=== PATIENT | female | born 1965 | race Caucasian/White ===

== ENCOUNTER 2016-07-10 18:54 | Emergency (ER) | payer OTHER ==
--- NOTE | 2016-07-10 19:52 | PROVIDER DOCUMENTATION ---
HPI-General Adult <Lisa Max - Last Filed: 07/10/16 20:51> - General Source: patient - History of Present Illness -Gen Adult Nature of Presenting Problems: 51 y/o F smoker with history of DVT (L leg 7 years ago), HTN, depression, chronic low back pain (2/2 DDD) presents with bilateral lower extremity swelling x 1 week. She also complains of SOB with exertion (x4 months), easy bruising to arms x 1 week. She denies chest pain, being on blood thinners, history of heart failure. She does not have a PCP. Location of Pain/Injury: reports: lower extremity (bilateral) Pain Radiation: reports: no radiation Quality of Pain: reports: aching Severity: reports: moderate Onset/Duration: reports: 1 week ago Timing: reports: still present Context/Activities at Onset: reports: none Associated Symptoms: reports: cough (2 weeks (recent URI)), shortness of breath (occasional with exertion). denies: back/neck pain, chest pain, fever/chills, nausea, sensory/motor loss, vomiting, weakness Similar Symptoms Previously?: Yes (with prior DVT) <Marisabel Damico - Last Filed: 07/10/16 21:58> - General Chief Complaint: General Adult Stated Complaint: GENERAL, ANKLES SWOLLEN Time Seen by Provider: 07/10/16 19:44 Allergies/Adverse Reactions: Patient Allergies Allergy/AdvReac Type Severity Reaction Status Date / Time tramadol HCl * [From Ultram] AdvReac Severe BLURRED Verified 07/10/16 20:35 VISION Home Medications: Home Medication List Medication Instructions Recorded Confirmed Last Taken Type Benzonatate [Tessalon Perle] 100 mg PO TID #30 capsule 07/10/16 Unknown Rx Cephalexin [Keflex] 500 mg PO 4XDAY #20 capsule 07/10/16 Unknown Rx Furosemide [Lasix] 20 mg PO DAILY #5 tablet 07/10/16 Unknown Rx Sulfamethoxazole/Trimethoprim 1 each PO BID #20 tablet 07/10/16 Unknown Rx [Bactrim Ds Tablet] Review of Systems - Adult - REVIEW OF SYSTEMS - ADULT Constitutional: reports: no symptoms reported. denies: chills, fever Eyes: reports: no symptoms reported Ears, Nose, Mouth & Throat: reports: no symptoms reported Cardiovascular: reports: no symptoms reported. denies: chest pain Respiratory: reports: cough, shortness of breath. denies: wheezing Gastrointestinal: reports: no symptoms reported. denies: abdominal pain, nausea , vomiting Genitourinary: reports: no symptoms reported. denies: dysuria, hematuria Musculoskeletal: reports: no symptoms reported. denies: bone pain, back pain Integumentary: reports: no symptoms reported. denies: itching, rash Neurological: reports: no symptoms reported. denies: dizziness/vertigo, headache/migraines, numbness Psychiatric: reports: no symptoms reported Endocrine: reports: no symptoms reported Hematologic/Lymphatic: reports: no symptoms reported Allergic/Immunologic: reports: no symptoms reported All Other Systems: Reviewed and Negative <Marisabel Damico - Last Filed: 07/10/16 21:58> Past History - Adult - PAST MEDICAL HISTORY-ADULT Review of Records: reports: Nursing Assessment Review, Medications Reviewed Cardiovascular: reports: HTN Respiratory: reports: COPD Gastrointestinal: reports: GERD, other (esophageal stretching) Musculoskeletal: reports: arthritis, chronic pain (neck and back pain) Neurological: - PRIOR SURGERIES/PROCEDURES Surgical/Procedure History: reports: hysterectomy (partial), esophageal dilation , other (mouth surgery, right and left foot surgery) - IMMUNIZATION STATUS Childhood Immunizations: See Nurse Assessment Flu Vaccine: See Nurse Assessment <Marisabel Damico - Last Filed: 07/10/16 21:58> Physical Exam-General - PHYSICAL EXAM-ADULT Initial Vital Signs Reviewed: Yes - CONSTITUTIONAL General Appearance: appears well, alert, no apparent distress - EYES Eyes: PERRL/EOMI, pink conjunctivae - HEAD, EARS, NOSE, MOUTH & THROAT HENMT: normocephalic/atraumatic, moist mucous membranes, normal ENT inspection - NECK Neck: non-tender, full range of motion, supple - RESPIRATORY Respiratory: chest non-tender, lungs clear, normal breath sounds, no pleuratic chest pain, no respiratory distress, no accessory muscle use - CARDIOVASCULAR Cardiovascular: normal peripheral pulses, regular rate, rhythm, no gallop, no JVD, no murmur - GASTROINTESTINAL (ABDOMEN) Abdominal Exam: normal bowel sounds, non tender, soft - LYMPHATIC Lymphatic: no adenopathy - MUSCULOSKELETAL Back Exam: normal inspection, no vertebral tenderness Extremity: normal range of motion, normal capillary refill, erythema (bilat), pedal edema (bilateral (L>R) extending to knees. nonpitting.), tenderness (bilat ) Peripheral Pulses: dorsalis-pedis (R): 0 (unable to palpate due to swelling, however right foot is warm with cap refill <2sec), dorsalis-pedis (L): 0, 4+ ( unable to palpate due to swelling, however right foot is warm with cap refill < 2sec) - SKIN Integumentary: normal turgor, warm/dry, other (brusing on bilateral upper extremities) - NEUROLOGIC Neurologic: grossly normal, no motor/sensory deficits - PSYCHIATRIC Psych/Mental Status: normal mood/affect, normal thought content, normal thought process, oriented x 3 <Marisabel Damico - Last Filed: 07/10/16 21:58> Progress - EKG 1 Time of EKG reading by physician:: 20:31 EKG Read and Signed by:: Jg Hernandez EKG Interpretation (*Must complete 3 of following elements*): Normal Rate: 88 Rhythm: NSR Comments: Borderline ECG <Lisa Max - Last Filed: 07/10/16 20:51> - PLAN OF CARE/RESULTS Progress/Plan/Lab Results: Laboratory Tests 07/10/16 07/10/16 07/10/16 20:25 20:25 20:25 WBC 10.09 RBC 4.31 Hgb 13.4 Hct 40.8 MCV 94.7 MCH 31.1 H MCHC 32.8 L RDW Std Deviation 16.4 H Plt Count 377 MPV 9.1 Immature Gran % (Auto) 0.3 Neut % (Auto) 55.7 Lymph % (Auto) 29.6 [place] % (Auto) 9.3 Eos % (Auto) 4.6 Baso % (Auto) 0.5 Immature Gran # (Auto) 0.03 Neut # (Auto) 5.62 Lymph # (Auto) 2.99 [place] # (Auto) 0.94 H Eos # (Auto) 0.46 Baso # (Auto) 0.05 PT INR PTT (Actin FS) D-Dimer 0.46 Sodium 142 Potassium 3.8 Chloride 101 Carbon Dioxide 26 Anion Gap 15 BUN 9 Creatinine 0.9 Estimated GFR/1.73 m2 > 60 BUN/Creatinine Ratio 10 Glucose 111 H Calculated Osmolality 283 Calcium 10.0 Total Bilirubin 0.20 AST 23 ALT 30 Alkaline Phosphatase 122 H Troponin T Uom-M-Nutptvnweaa Pept Total Protein 7.0 Albumin 3.9 Globulin 3.1 Albumin/Globulin Ratio 1.3 07/10/16 07/10/16 07/10/16 20:25 20:25 20:25 WBC RBC Hgb Hct MCV MCH MCHC RDW Std Deviation Plt Count MPV Immature Gran % (Auto) Neut % (Auto) Lymph % (Auto) [place] % (Auto) Eos % (Auto) Baso % (Auto) Immature Gran # (Auto) Neut # (Auto) Lymph # (Auto) [place] # (Auto) Eos # (Auto) Baso # (Auto) PT 10.0 INR 0.94 PTT (Actin FS) 28.3 D-Dimer Sodium Potassium Chloride Carbon Dioxide Anion Gap BUN Creatinine Estimated GFR/1.73 m2 BUN/Creatinine Ratio Glucose Calculated Osmolality Calcium Total Bilirubin AST ALT Alkaline Phosphatase Troponin T < 0.010 Vyf-R-Olbbtkabqby Pept 339 H Total Protein Albumin Globulin Albumin/Globulin Ratio Orders Category Date Time Status CHEST-2 VIEWS [RAD] Stat Exams 07/10/16 19:53 Taken CBC WITH ELECTRONIC DIFF [HEME] Stat Lab 07/10/16 20:25 Completed COMPREHENSIVE METABOLIC PANEL [CHEM] Stat Lab 07/10/16 20:25 Completed D-DIMER [CHEM] Stat Lab 07/10/16 20:25 Completed PRO B-NATRIURETIC PEPTIDE Stat Lab 07/10/16 20:25 Completed PROTIME WITH INR [COAG] Stat Lab 07/10/16 20:25 Completed PTT [COAG] Stat Lab 07/10/16 20:25 Completed TROPONIN T Stat Lab 07/10/16 20:25 Completed EKG [EKG] Stat Ther 07/10/16 19:53 Ordered Vital Signs Temp Pulse Resp BP Pulse Ox 07/10/16 19:06 97.9 F 92 H 18 148/82 98 tramadol HCl * [From [facility]] Adverse Reaction (Severe, Verified 07/10/16 20:35) BLURRED VISION Benzonatate [Tessalon Perle] 100 mg PO TID #30 capsule 07/10/16 Cephalexin [Keflex] 500 mg PO 4XDAY #20 capsule 07/10/16 Furosemide [Lasix] 20 mg PO DAILY #5 tablet 07/10/16 Sulfamethoxazole/Trimethoprim [Bactrim Ds Tablet] 1 each PO BID #20 tablet 07/10 Laboratory 07/10/16 07/10/16 07/10/16 20:25 20:25 20:25 WBC RBC Hgb Hct MCV MCH MCHC RDW Std Deviation Plt Count MPV Immature Gran % (Auto) Neut % (Auto) Lymph % (Auto) [place] % (Auto) Eos % (Auto) Baso % (Auto) Immature Gran # (Auto) Neut # (Auto) Lymph # (Auto) [place] # (Auto) Eos # (Auto) Baso # (Auto) PT 10.0 INR 0.94 PTT (Actin FS) 28.3 D-Dimer Sodium Potassium Chloride Carbon Dioxide Anion Gap BUN Creatinine Estimated GFR/1.73 m2 BUN/Creatinine Ratio Glucose Calculated Osmolality Calcium Total Bilirubin AST ALT Alkaline Phosphatase Troponin T < 0.010 Mjr-L-Cklrrerrgcz Pept 339 H Total Protein Albumin Globulin Albumin/Globulin Ratio 07/10/16 07/10/16 07/10/16 20:25 20:25 20:25 WBC 10.09 RBC 4.31 Hgb 13.4 Hct 40.8 MCV 94.7 MCH 31.1 H MCHC 32.8 L RDW Std Deviation 16.4 H Plt Count 377 MPV 9.1 Immature Gran % (Auto) 0.3 Neut % (Auto) 55.7 Lymph % (Auto) 29.6 [place] % (Auto) 9.3 Eos % (Auto) 4.6 Baso % (Auto) 0.5 Immature Gran # (Auto) 0.03 Neut # (Auto) 5.62 Lymph # (Auto) 2.99 [place] # (Auto) 0.94 H Eos # (Auto) 0.46 Baso # (Auto) 0.05 PT INR PTT (Actin FS) D-Dimer 0.46 Sodium 142 Potassium 3.8 Chloride 101 Carbon Dioxide 26 Anion Gap 15 BUN 9 Creatinine 0.9 Estimated GFR/1.73 m2 > 60 BUN/Creatinine Ratio 10 Glucose 111 H Calculated Osmolality 283 Calcium 10.0 Total Bilirubin 0.20 AST 23 ALT 30 Alkaline Phosphatase 122 H Troponin T Rfl-Z-Ceddepxmzcb Pept Total Protein 7.0 Albumin 3.9 Globulin 3.1 Albumin/Globulin Ratio 1.3 - REASSESSMENT Reassessment #1 Time Reassessed: 21:50 (Patient resting comfortably in no distress. No SOB currently. PO2 98%. Labs show normal WBC, elevated ALP and BNP. Normal troponin , normal EKG. Normal coags. Will discharge patient home to follow up with PCP for further evaluation and treatment. Will give lasix for swelling and cover for possible overlying cellulitis with bactrim and keflex. She is to return to the ER for any new or worsening symptoms.) Status: unchanged - XRAY 1 XRAY Study: Chest Comparison with other Films: no changes XRAY Interpretation: no acute process <Marisabel Damico - Last Filed: 07/10/16 21:58> Departure <Lisa Max - Last Filed: 07/10/16 20:51> - Departure Time of Disposition Order: 21:46 Certified Medical Emergency: Emergent <Marisabel Damico - Last Filed: 07/10/16 21:58> - Departure DIAGNOSIS: Bilateral lower extremity edema Disposition: HOME 01 Condition: Good Additional Instructions: ED Follow Up Instructions: You have been treated by a care provider in the Emergency Department. These instructions are being provided to you so you can have an understanding of how to care for yourself upon discharge. Upon discharge from the Emergency Department, you are responsible for making arrangements for follow-up care by a physician of your choice. Take all prescribed medications as directed. Return to the Emergency Department immediately for any new or worsening symptoms. You may call the Physician Referral phone number at [phone] to obtain a list of Physicians who are taking new patients. Prescriptions: Sulfamethoxazole/Trimethoprim [Bactrim Ds Tablet] 1 each PO BID #20 tablet Cephalexin [Keflex] 500 mg PO 4XDAY #20 capsule Furosemide [Lasix] 20 mg PO DAILY #5 tablet Benzonatate [Tessalon Perle] 100 mg PO TID #30 capsule Referrals: None,PCP [Primary Care Provider] - Attestation - Physician/ TERRELL Attestation Patient care was provided by Advanced Practice Provider:: Yes Advanced Practice Provider:: Marisabel Damico Advanced Practice Provider documentation review:: The Mid-level provider documentation, treatment plan and medical decision making was reviewed by the physician who agrees with all treatment and medical decision making by the [facility]. <Marisabel Damico - Last Filed: 07/10/16 21:58> Physician Attestation
[2016-07-10 20:37] LABS: MANUAL DIFF NEEDED? NO
[2016-07-10 20:45] LABS: BASO% 0.5 % (0.0-0.8); EOS# 0.46 X1000 (0.0-0.7); EOS% 4.6 % (0.0-10.0); HEMATOCRIT 40.8 % (37.0-47.0); HEMOGLOBIN 13.4 g/dL (12.0-16.0); IMM GRAN# 0.03 X1000 (0.0-0.04); IMM GRAN% 0.3 % (0.0-0.5); LYMPH# 2.99 X1000 (1.2-3.4); LYMPH% 29.6 % (20.5-51.1); MCH 31.1 PG (27-31); MCHC 32.8 g/dL (33-37); MCV 94.7 FL (81-99); MONO# 0.94 X1000 (0.11-0.59); MONO% 9.3 % (1.7-9.3); MPV 9.1 FL (7.4-10.4); NEUT% 55.7 % (42.2-75.2); PLT 377 X1000 (130-400); RBC 4.31 XMIL (4.2-5.4)
[2016-07-10 20:54] LABS: INR 0.94; PTT 28.3 Seconds (22.0-36.0)
[2016-07-10 21:04] LABS: AGAP 15; ALBUMIN 3.9 g/dL (3.5-5.0); ALKALINE PHOSPHATASE 122 U/L (32-104); BUN 9 mg/dL (8-22); CHLORIDE 101 mmol/L (98-107); COSMO 283; GOT 23 U/L (10-30); GPT 30 U/L (10-36); POTASSIUM 3.8 mmol/L (3.5-5.1); SODIUM 142 mmol/L (136-145); TCO2 26 mmol/L (25-35)
[2016-07-10 22:01] VITALS: BP 150/91
--- NOTE | 2016-07-11 05:36 | EKG Report ---
Test Performed on : 07/10/2016 8:31:27 PM Test Reason : sob Blood Pressure : / mmHG Vent. Rate : 088 BPM Atrial Rate : 088 BPM P-R Int : 146 ms QRS Dur : 082 ms QT Int : 372 ms P-R-T Axes : 037 000 046 degrees QTc Int : 450 ms Normal sinus rhythm. Possible Left atrial enlargement Borderline ECG When compared with ECG of 10-OCT-2015 16:56, premature ventricular complexes. are no longer present Unconfirmed Result
--- NOTE | 2016-07-11 09:18 | Diag Imaging Result Document ---
PROCEDURE NAME: CHEST-2 VIEWS - 07/10/2016 2 VIEWS OF THE CHEST: FINDINGS: There is no evidence of acute cardiac or pulmonary disease. Compared to 08/15/2015, the inspiration is less optimal but, otherwise, there has been no significant change. IMPRESSION: No evidence of acute disease.
== END 2016-07-10 22:09 | disposition home or self-care (01) ==
LOC: ED 18:54
DX: R60.9 Edema, unspecified (principal); M25.472 Effusion, left ankle; M25.471 Effusion, right ankle; R06.02 Shortness of breath; R05 Cough; I10 Essential (primary) hypertension; J44.9 Chronic obstructive pulmonary disease, unspecified; M19.90 Unspecified osteoarthritis, unspecified site
CPT/HCPCS: 71020; 80053; 83880; 84484; 85025; 85379; 85610; 85730; 93005

== ENCOUNTER 2018-05-23 13:19 | Inpatient (IN) ==
[2018-05-23 14:59] LABS: BASO# 0.04 X1000 (0.0-0.2); BASO% 0.3 % (0.0-0.8); EOS# 0.04 X1000 (0.0-0.7); EOS% 0.3 % (0.0-10.0); HEMATOCRIT 43.5 % (37.0-47.0); HEMOGLOBIN 14.3 g/dL (12.0-16.0); IMM GRAN# 0.02 X1000 (0.0-0.04); IMM GRAN% 0.2 % (0.0-0.5); LYMPH# 1.49 X1000 (1.2-3.4); LYMPH% 12.4 % (20.5-51.1); MCH 29.9 PG (27-31); MCHC 32.9 g/dL (33-37); MCV 90.8 FL (81-99); MONO# 0.44 X1000 (0.11-0.59); MONO% 3.7 % (1.7-9.3); MPV 9.4 FL (7.4-10.4); NEUT# 10.01 X1000 (1.4-6.5); NEUT% 83.1 % (42.2-75.2); PLT 303 X1000 (130-400); RBC 4.79 XMIL (4.2-5.4); RDW 14.8 % (11.5-14.5); WBC 12.04 X1000 (4.8-10.8)
[2018-05-23 15:15] LABS: AGAP 12; ALBUMIN 3.6 g/dL (3.5-5.0); ALKALINE PHOSPHATASE 90 U/L (32-104); BUN 6 mg/dL (8-22); CALCIUM 9.5 mg/dL (8.8-10.2); CHLORIDE 103 mmol/L (98-107); COSMO 278; CREATININE 0.9 mg/dL (0.5-0.9); ESTIMATED GFR > 60; GLUCOSE 108 mg/dL (70-104); GOT 22 U/L (10-30); GPT 20 U/L (10-36); POTASSIUM 4.2 mmol/L (3.5-5.1); SODIUM 140 mmol/L (136-145); TCO2 25 mmol/L (25-35); TOTAL BILIRUBIN < 0.15 mg/dL (0.20-1.00); TOTAL PROTEIN 6.7 g/dL (6.3-8.3)
[2018-05-23 15:19] LABS: UR AMPHETAMINES QUAL NONE DETECTED (NONE DETECT); UR BARBITUATES QUAL NONE DETECTED (NONE DETECT); UR BENZODIAZEPIN QUAL NONE DETECTED (NONE DETECT); UR CANNABINOIDS QUAL PRESUMPTIVE POSITIVE (NONE DETECT); UR COCAINE QUAL NONE DETECTED (NONE DETECT); UR METHADONE QUAL NONE DETECTED (NONE DETECT); UR METHAMPHETAMINE QUAL NONE DETECTED (NONE DETECT); UR OPIATES QUAL NONE DETECTED (NONE DETECT); UR OXYCODONE QUAL NONE DETECTED (NONE DETECT); UR PCP QUAL NONE DETECTED (NONE DETECT); UR PROPOXYPHENE QUAL NONE DETECTED (NONE DETECT); UR TCA QUAL NONE DETECTED (NONE DETECT)
[2018-05-23] MEDS ORDERED: ATIVAN IM ONE (16:15)
[2018-05-23] MEDS ORDERED: ATIVAN ONE (16:18)
--- NOTE | 2018-05-23 17:06 | Diag Imaging Result Doc PS360 ---
EXAM: CT HEAD W/O CONTRAST - 05/23/2018 HISTORY: AMS TECHNIQUE: CT head without contrast COMPARISON: 08/15/2015 FINDINGS: There is no evidence of intracranial hemorrhage, mass effect, midline shift, or hydrocephalus. There is no evidence of infarct, although acute infarcts may not be immediately visible. Visualized portions of paranasal sinuses and mastoid air cells appear clear. IMPRESSION: No visible acute intracranial abnormality. No hemorrhage or mass effect. This exam was performed using automated exposure control, adjustment of mA or kV according to patient size, and/or use of iterative reconstruction technique. Electronically signed by Ace Alvarez 05/23/2018 5:04 PM
[2018-05-23] MEDS ORDERED: TYLENOL PO PRN (19:39)
[2018-05-23] MEDS: ZOFRAN IV PRN (20:24)
[2018-05-23] MEDS: NS 1,000 ML IV SCH (20:24)
[2018-05-23] MEDS: ATIVAN IV PRN (20:24)
[2018-05-23 22:58] LABS: BILIRUBIN URINE NEGATIVE (NEGATIVE); BLOOD URINE NEGATIVE (NEGATIVE); CLARITY CLEAR (CLEAR); COLOR YELLOW; GLUCOSE URINE NEGATIVE (NEGATIVE); KETONE URINE 1+(Small) mg/dL (NEGATIVE); LEUKOCYTES URINE NEGATIVE (NEGATIVE); NITRITE URINE NEGATIVE (NEGATIVE); PROTEIN URINE NEGATIVE (NEGATIVE); UROBILINOGEN URINE NORMAL
[2018-05-23 23:02] LABS: URINE BACTERIA 1+ /HFP; URINE EPITHELIAL CELLS <10 /HPF (<10); URINE WBC NS /HPF (<10)
[2018-05-23 23:03] LABS: URINE SOURCE CATH
[2018-05-24] MEDS: ATIVAN IV PRN ×5 (00:26→23:34)
--- NOTE | 2018-05-24 00:54 | HISTORY AND PHYSICAL ---
PRIMARY CARE PHYSICIAN: None. CHIEF COMPLAINT: Was brought in by private automobile, with uncontrolled movement and increased confusion, after smoking marijuana with her last night. HISTORY OF PRESENTING ILLNESS: This is a 52-year-old female who presents to [facility] ER via private automobile, with uncontrolled movement and increased confusion after smoking marijuana with last night. Apparently, the is being admitted to the hospital also with altered mentation, and it appears that the marijuana they smoked was laced with possibly spice. Workup in the emergency room showed a white blood cell count of 12.04. Urine drug screen was presumptive positive for cannabinoids. She has had worsening mentation since being in the emergency room, is unable to answer any questions appropriately, but does respond to verbal stimuli, just inappropriately. She will be admitted for further evaluation and treatment. PAST MEDICAL HISTORY: Blood clots, hypertension, COPD, GERD, chronic pain, anxiety, depression. PAST SURGICAL HISTORY: Esophageal stretching, hysterectomy, bilateral foot surgery. FAMILY HISTORY: Reviewed and noncontributory. SOCIAL HISTORY: She currently lives with . Smokes a pack cigarettes a day. Drinks occasionally, and smokes marijuana daily. ALLERGIES: Tramadol. HOME MEDICATIONS: We do not have any medications listed on a routine basis. We will make an attempt to verify that. LABORATORY DATA: Showed a white blood cell count of 12.04, hemoglobin 14.3, hematocrit 43.5, platelets 303,000. Sodium 140, potassium 4.2, chloride 103, CO2 25, BUN of 6, creatinine 0.9, glucose 108. Urine drug screen presumptive positive for cannabinoids. CT of the head is pending at this time. REVIEW OF SYSTEMS: Unable to obtain from patient. PHYSICAL EXAMINATION: VITAL SIGNS: On arrival, showed a temperature of 98.1 degrees, pulse 79, respirations 18, blood pressure 153/92, saturating 92% on room air. GENERAL: This is a 52-year-old female, lying in the bed, rolling back and forth in the bed. Will respond to verbal stimuli, but inappropriately, and is confused. HEENT: Normocephalic, atraumatic. Normal ENT inspection. Oropharynx and nares appear clear. Eyes: Pupils are dilated, but respond to light and accommodation. Extraocular movements are intact. NECK: Normal inspection. Normal range of motion. LUNGS: Clear to auscultation bilaterally, with equal lung expansion and chest wall movement. HEART: Regular rate and rhythm. No murmurs, rubs, or gallops. ABDOMEN: Soft, nontender, nondistended. Bowel sounds are present x4 quadrants. MUSCULOSKELETAL: Unable to assess strength at this time. NEUROLOGICAL: Unable to assess cranial nerves at this time. ASSESSMENT: 1. Altered mental status. 2. Marijuana abuse, possibly laced with spice. 3. Tobacco abuse. PLAN: She will be admitted to the intensive care unit at [facility], placed on telemetry, held NPO, placed on normal saline at 125 mL an hour. Will give her Ativan 1 mg IV q.4 hours p.r.n., Zofran 4 mg IV q.4 hours p.r.n., and recheck a CBC, BMP in the a.m. Dictated by LISA Rolle for Nikita Mcclure MD cc: LISA Rolle MD
[2018-05-24] MEDS: NS 1,000 ML IV SCH ×3 (04:59→21:40)
--- NOTE | 2018-05-24 04:59 | HISTORY AND PHYSICAL ---
HISTORY AND PHYSICAL ADDENDUM: The patient seen and examined by me face to face. All the laboratory images and vital signs were reviewed. The patient presented to the emergency department with confusion. CT of the head with no visible acute intracranial abnormality. Apparently, she was using some drugs, and then she became extremely confused and agitated. The used the same type of drug, and he has been hospitalized also. There is a possibility of not only using marijuana, but Spice. Vital signs are stable. Temperature 98.5 degrees, pulse 78, respiratory rate 16, blood pressure 140/90, oxygen saturation 97% on room air. She is awake, alert, but she is not oriented. She is able to follow commands on-and-off. She is moving her extremities constantly. She will be admitted to the intensive care unit will receive. She will receive IV fluids. Urine toxicology showed cannabinoids. CBC with leukocytosis. CMP with a little bit of hyperglycemia, but basically stable laboratory. It looks like she is not taking any kind of medications at home. We will continue to monitor this patient in the intensive care unit. I already talked to the family. At this moment, she seems to be a little bit more stable, but still agitated. I agree with the rest of the nurse practitioner's assessment and plan. cc: Nikita Mcclure MD
[2018-05-24 06:15] LABS: BASO# 0.03 X1000 (0.0-0.2); BASO% 0.3 % (0.0-0.8); EOS# 0.11 X1000 (0.0-0.7); EOS% 1.2 % (0.0-10.0); HEMATOCRIT 42.1 % (37.0-47.0); HEMOGLOBIN 13.6 g/dL (12.0-16.0); IMM GRAN# 0.01 X1000 (0.0-0.04); IMM GRAN% 0.1 % (0.0-0.5); LYMPH# 3.01 X1000 (1.2-3.4); LYMPH% 33.3 % (20.5-51.1); MCH 29.6 PG (27-31); MCHC 32.3 g/dL (33-37); MCV 91.7 FL (81-99); MONO# 0.76 X1000 (0.11-0.59); MONO% 8.4 % (1.7-9.3); MPV 9.5 FL (7.4-10.4); NEUT# 5.11 X1000 (1.4-6.5); NEUT% 56.7 % (42.2-75.2); PLT 291 X1000 (130-400); RBC 4.59 XMIL (4.2-5.4); RDW 14.9 % (11.5-14.5); WBC 9.03 X1000 (4.8-10.8)
[2018-05-24 06:29] LABS: AGAP 12; BUN 6 mg/dL (8-22); CALCIUM 8.8 mg/dL (8.8-10.2); CHLORIDE 104 mmol/L (98-107); COSMO 280; CREATININE 0.7 mg/dL (0.5-0.9); ESTIMATED GFR > 60; GLUCOSE 91 mg/dL (70-104); POTASSIUM 4.2 mmol/L (3.5-5.1); SODIUM 142 mmol/L (136-145); TCO2 26 mmol/L (25-35)
--- NOTE | 2018-05-24 08:03 | Diag Imaging Result Doc PS360 ---
EXAM: CHEST-PORTABLE INDICATION: dyspnea TECHNIQUE: One view COMPARISON: 09/24/2017 FINDINGS: The lungs are grossly clear. There is no discrete pleural fluid collection or pneumothorax. The cardiomediastinal silhouette and central vasculature are grossly unremarkable. IMPRESSION: No evidence of acute pathology by plain radiograph. Electronically signed by Melo Antunez 05/24/2018 8:01 AM
[2018-05-24] MEDS ORDERED: HALDOL IV ONE (08:38)
[2018-05-24] MEDS: HALDOL IV PRN ×3 (10:59→21:39)
--- NOTE | 2018-05-24 14:57 | PROGRESS NOTE ---
DATE: 05/24/2018 SUBJECTIVE: Patient has been somewhat agitated and talkative. She has flight of ideas and cannot focus on 1 subject. She threatens to leave the hospital at times and then slows down at other times. Therefore, she is not able to communicate properly. OBJECTIVE: Vital Signs: Temperature 98.8 degrees, pulse 86 per minute, respiratory rate 23 per minute, blood pressure 108/66, pulse oximetry 90 percent on room air. General: Patient is awake and alert but confused at times. Cardiovascular: First and second heart sounds are audible without any murmurs or gallops. Respiratory: No respiratory distress noted. Bilateral lung air entry is good without any rales or rhonchi. Gastrointestinal: Abdomen is soft and nondistended. It is nontender on palpation and normal bowel sounds are present. DIAGNOSTIC DATA: CBC and basic metabolic panel are both nondiagnostic. She was found to have cannabinoids positive on her urine drug screen on admission. IMPRESSION: Altered mental status secondary to marijuana, suspected to be laced with spice. PLAN: The patient will be kept in the intensive care unit and we will keep giving her haloperidol along with lorazepam IV as needed along with IV fluids. She can probably be sent home once her drug overdose gets better. cc: Tariq Chandra MD
[2018-05-25] MEDS: ATIVAN IV PRN ×5 (01:59→19:24)
[2018-05-25] MEDS: HALDOL IV PRN ×6 (02:00→15:15)
[2018-05-25] MEDS: NS 1,000 ML IV SCH ×3 (04:55→18:27)
[2018-05-25] MEDS: ZOFRAN IV PRN (07:14)
--- NOTE | 2018-05-25 10:44 | PROGRESS NOTE ---
DATE: 05/25/2018 SUBJECTIVE: The patient continues to be somewhat agitated and threatening to leave against medical advice this morning. She gets disoriented at times and has flight of ideas. OBJECTIVE: Vital Signs: Temperature 98.6 degrees, pulse 114 per minute, respiratory rate 21 per minute, blood pressure 173/83, pulse oximetry 94% on room air. General: The patient is awake and alert but has periods of disorientation. She has flight of ideas and jumps from one topic to another. She has pulled her IV this morning and was bleeding all over. She was threatening to leave against medical advice. Cardiovascular System: First and second heart sounds are audible with regular tachycardia. Pulmonary: Bilateral lung air entry is good without any rales or rhonchi. Gastrointestinal System: Abdomen is soft and nondistended. Normal bowel sounds are present. IMPRESSION: Altered mental status secondary to marijuana, suspected to be laced with spice. PLAN: The patient will be kept in the intensive care unit and will be kept on haloperidol along with lorazepam IV along with IV fluids. We will let her go home once she gets better, but the half-life of synthetic cannabinoids is very long and is approximately 3 to 4 days. Therefore, her recovery is going to take a bit longer than expected for usual cannabinoids. She can probably be able to go home in the next 48 hours, however. cc: Tariq Chandra MD
[2018-05-25] MEDS ORDERED: FLONASE NAS SCH (14:15)
[2018-05-25] MEDS ORDERED: ZYRTEC PO SCH (14:15)
[2018-05-25] MEDS ORDERED: NICODERM PATCH TD SCH (14:15)
[2018-05-25] MEDS ORDERED: MORPHINE IV PRN (18:10)
[2018-05-25] MEDS ORDERED: APRESOLINE IV PRN (18:11)
[2018-05-25] MEDS ORDERED: LOVENOX SUBQ SCH (19:00)
[2018-05-26] MEDS: ATIVAN IV PRN (01:23)
[2018-05-26] MEDS: NS 1,000 ML IV SCH ×2 (03:12→05:42)
[2018-05-26 07:35] VITALS: BP 167/79
--- NOTE | 2018-05-26 08:25 | DISCHARGE SUMMARY ---
ADMISSION DATE: 05/25/2018 DISCHARGE DATE: 05/26/2018 DISCHARGE DIAGNOSES: 1. Altered mental status secondary to marijuana abuse that was possibly laced with spice. 2. Tobacco abuse. 3. Allergic rhinitis. HOSPITAL COURSE: This is a 52-year-old female, who presented to the emergency department here at [facility], after she was having increased confusion. She was reportedly smoking marijuana with her the night before. Apparently, the was also admitted to the hospital with the same complaints after having altered mental status. He also was smoking marijuana the night before. The patient was noted to have a positive drug screen for cannabinoids. She was admitted to the hospital and was given IV fluids along with supportive care. She was very agitated and having altered mental status and therefore, required haloperidol along with lorazepam IV on a as needed basis. Her condition has improved this morning and therefore, we are going to let her go home today. She was having tobacco abuse counseling against, which has been provided to her. She was having nicotine patch here at the hospital because of tobacco dependence. The patient also had complaint of having nasal congestion and sneezing because of which she was started on Cetirizine 10 mg daily along with fluticasone nasal spray, which will be continued as outpatient. Since patient's condition has been improved, she is going to be discharged home today. Her daughter is coming into the hospital to apple picker her mom and take her home. DISCHARGE MEDICATIONS: 1. Cetirizine 10 mg daily. 2. Fluticasone nasal spray 2 sprays per nostril once daily. FOLLOWUP: She will follow up with her PCP in approximately 1 to 2 weeks. CONDITION: Stable. DISPOSITION: Home. cc: Tariq Chandra MD
--- NOTE | 2018-05-26 13:57 | EKG Report ---
Test Performed on : 05/23/2018 2:00:10 PM Test Reason : ER Blood Pressure : / mmHG Vent. Rate : 076 BPM Atrial Rate : 076 BPM P-R Int : 146 ms QRS Dur : 078 ms QT Int : 414 ms P-R-T Axes : 029 -10 032 degrees QTc Int : 465 ms Normal sinus rhythm. Normal ECG When compared with ECG of 24-SEP-2017 10:29, (Unconfirmed) No significant change was found Unconfirmed Result
== END 2018-05-26 09:10 | disposition home or self-care (01) | DRG 917 ==
LOC: P.ED 13:19 → P.ICU 13:19 → SUATTDRO 13:20 → OBSVTOIN 13:20
PROVIDERS: ATTEND Internal Medicine
CPT/HCPCS: 70450; 71010; 71045; 80048; 80053; 80104; 80301; 80305; 81001; 82948; 85025; 87088; 93005; 96372; 99285; A9270; G0431; G0434; G0477; J0360; J1630; J1650; J2060; J2270; J2405; J7030; XXXXX